=== PATIENT | female | born 1960 | race Caucasian/White ===

== ENCOUNTER 2025-04-24 10:28 | Outpatient (REF) | payer OTHER, SELFPAY ==
[2025-04-24 14:31] LABS: Hematocrit 41.5 % (37.0-47.0); Hemoglobin 14.5 g/dl (12.0-16.0); Mean Corpuscular HGB Conc 34.9 g/dl (31.0-35.0); Mean Corpuscular Hemoglobin 30.7 pg (27.0-33.0); Mean Corpuscular Volume 87.9 fL (80.0-98.0); NRBC Abs Auto 0.000 X10*3/uL (0.0-0.012); NRBC Pct Auto 0.0 /100WBC (0.0-0.2); Platelet Count 284 X10*3/uL (160-400); Red Blood Count 4.72 X10*6/uL (4.20-5.50); White Blood Count 10.6 X10*3/uL (4.8-10.8)
[2025-04-24 15:40] LABS: Folate 2.3 ng/mL (> or = 4.0); Vitamin B12 565 pg/mL (200-900)
[2025-04-24 17:41] LABS: Anion Gap 13 (12-20)
[2025-04-24 19:27] LABS: Alanine Aminotransferase 20 U/L (0-31); Albumin Level 4.5 g/dL (3.5-5.0); Alkaline Phosphatase 74 U/L (39-117); Aspartate Amino Transferase 23 U/L (5-31); Blood Urea Nitrogen 10 mg/dL (9-16); Calcium 9.7 mg/dL (8.4-10.2); Carbon Dioxide 31 mmol/L (22-29); Chloride 98 mmol/L (96-108); Estimated Glomerular Filt Rate > 60; Iron 75 mcg/dL (30-160); Magnesium 1.9 mg/dL (1.6-2.6); Percent Iron Saturation 24 % (15-50); Sodium 139 mmol/L (135-145); Total Iron Binding Capacity 309 mcg/dL (228-428); Total Protein 7.6 g/dL (6.5-8.0); Unsaturated Iron Binding 234 ug/dL
[2025-04-24 19:59] LABS: Potassium 2.7 mmol/L (3.3-5.1)
== END 2025-04-24 10:29 | disposition home or self-care (01) ==
LOC: HO.WFDLDS 10:28
PROVIDERS: PCP Nurse Practitioner Family; Visit Provider Nurse Practitioner Family
DX: I12.9 Hypertensive chronic kidney disease with stage 1 through stage 4 chronic kidney disease, or unspecified chronic kidney disease (principal); E03.9 Hypothyroidism, unspecified; F17.210 Nicotine dependence, cigarettes, uncomplicated; F41.9 Anxiety disorder, unspecified; G47.00 Insomnia, unspecified; R01.1 Cardiac murmur, unspecified; N18.31 Chronic kidney disease, stage 3a; F41.1 Generalized anxiety disorder; F10.21 Alcohol dependence, in remission; F33.0 Major depressive disorder, recurrent, mild; R94.31 Abnormal electrocardiogram [ECG] [EKG]; I34.81 Nonrheumatic mitral (valve) annulus calcification; Z23 Encounter for immunization; Z78.0 Asymptomatic menopausal state; Z13.1 Encounter for screening for diabetes mellitus; Z53.20 Procedure and treatment not carried out because of patient's decision for unspecified reasons; Z92.89 Personal history of other medical treatment; Z76.89 Persons encountering health services in other specified circumstances
CPT/HCPCS: 36415; 80053; 82043; 82306; 82570; 82607; 82746; 83036; 83540; 83735; 84100; 84443; 85027; 90471; 90656; 96127

== ENCOUNTER 2025-04-24 10:28 | Outpatient (AMB) | payer OTHER, SELFPAY ==
--- NOTE | 2025-04-24 10:45 | A.OFFPC_ITS ---
Vital Signs 04/24/25 10:52 04/24/25 11:18 Height 5 ft 3 in Weight 177 lb BMI 31.4 BP 150/80 H 132/68 Blood Pressure Location Rt brachial Rt brachial Position Sitting Sitting Respiration 14 Pulse 93 Pulse Source Pulse Oximeter Temp 97.2 F Temp Source Oral Pulse Oximetry (%) 96 Oxygen Delivery Method Room Air Intake Visit Reasons: [employer] Thyroid conditions Intake Note: New patient to establish care. Labor Expediter Required: No Allergies lisinopril Adverse Reaction (Mild, Verified 04/24/25 11:18) Cough Medication List - Last Reviewed 04/24/25 by Kate Frank MA hydrochlorothiazide 25 mg PO DAILY levothyroxine 150 mcg PO DAILY potassium chloride ER (Klor-Con M) 20 mEq PO DAILY trazodone 50 mg PO BEDTIME Tobacco use date assessed: 04/24/25 Dental Screening Dental Screen Date: 04/24/25 Did you have a dental visit in the last 12 months?: No Did you have a dental problem in the last 6 months where you did not have access to dental care?: No Was dental information given to patient?: Patient declined HPI HPI Comments History of Present Illness Details 64 y/o F with QT prolongation, CKD3, ALMITA , MDD, HTN, Hypothryoid, Etoh dependence in remission, Current smoker, DJD of spine, Mitral valve thickening s/p appy, froylan, tonsillectomy Fhx: Dad prostate ca ; Mom dementia Social: lives w , 3 adult children, has grandchildren; 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 Previous PCP [facility] , records reviewed and rec'd Essential Hypertension/HX QR prolongation - Managed with hydrochlorothiazide post- lisinopril cough. - Past sodium-related issues; low potass ium noted in the past - Reports related to meds she was on; harrison s stopped. Denies palpitations. Hypothyroidism: - On levothyroxine; due for labs. Alcohol Use Disorder: - In remission; occasional drink, no reg ular use. Nicotine Dependence: - Attempts reduction; smoking approx. 10 /day. Anxiety Disorder, Major Depressive Disorder, insomnia: - Managed with trazodone PRN. Offered an d declined counseling; feels she is managing. Heart Murmur: - Noted during exam; mitral valve issue in 2019 noted on echo. - Declined Statin/cholesterol testing, p er choice. Review of Systems - Cardiovascular: Reports white coat syn drome. Denies current chest pain. - Respiratory: Denies recent persistent cough. - Endocrine: Reports current thyroid med ication use. - Musculoskeletal: Reports ankle and leg discomfort. - Psychiatric: Reports anxiety, does not feel need for therapy. - Substance Use: Denies recent regular a lcohol use; smokes ~10 cigarettes daily. Physical Exam General: Well developed, well nourished, in no acute distress. Appears stated age. Head: Normocephalic, atraumatic. Eyes: Pupils are equal, round and reactive to light and accommodation. Conjunctivae are clear Lungs: Clear to auscultation bilaterally. No rales, rhonchi or wheeze noted. Good air flow in all galvan. Heart: Regular rate and rhythm. 2/6 murmur RSB noted Musculoskeletal: Joints are nontender, without swelling, redness, or effusions. Pulses: Peripheral pulses are equal and palpable bilaterally. Extremities: No clubbing, cyanosis nor edema is noted. + varicose veins Psych: Mood and affect appropriate. Results Pending Discussion Notes I discussed the patient's chronic conditions including hypertension, hypothyroidism, past alcohol use disorder, nicotine dependence, anxiety, and depression. We reviewed her blood pressure management with hydrochlorothiazide and past issues with lisinopril. I addressed electrolyte concerns in relation to her hypothyroidism, agreeing on necessary lab checks to evaluate her current baseline levels. The patient is aware of her remission from alcohol use and her attempts to reduce nicotine use, highlighting her ongoing attempts to cut back smoking. I noted her anxiety, depression & insomnia being managed with trazodone and lifestyle adjustments. I discussed the murmur found on physical exam, which may relate to previous mitral valve thickening, and recommended a follow-up echocardiogram. Finally, the patient opted out of cholesterol testing due to past medication issues and expressed concerns over lab costs. I informed her of the test's significance, but respected her decision. Flu vaccination was accepted, considering her familial exposure risks. Patient was given time to ask questions. All questions were answered to their satisfaction. Assessment and Plan 1. Essential Hypertension - Continue hydrochlorothiazide; monitor electrolytes. - Refill to be sent after lab review 2. Hypothyroidism - Continue levothyroxine; assess thyroid labs. 3. Alcohol Use Disorder - Support remission; minimal consumption noted. 4. Nicotine Dependence - Patient actively reducing; no vaping a dvised. - Will need to review lung ca screening during annual visit 5. Anxiety Disorder, Major Depressive Di sorder, Insomnia: - Continue trazodone; non-pharmacologic strategies. Declined counseling. Denies si.hi 6. Heart Murmur/Hx of QT prolongation - Refer for echocardiogram. - Check EKG at next visit. 7. Flu shot admin today Patient Instructions - Take your prescribed medications as di rected. - Labs today - Attend your echocardiogram appointment . - Continue reducing smoking as able. - Report any new or worsening symptoms. - RTO 4-6 weeks for AWV, sooner PRN Consent Patient was informed and verbally consented to the use of an ambient scribe for clinic note documentation during this visit. Total time spent caring for the patient today was 45 minutes. This includes time spent before the visit reviewing the chart, time spent during the visit, and time spent after the visit on documentation, reviewing laboratory results, diagn ostic imaging, medications, performing a medically necessary evaluation, counseling on diagnoses, care coordination, ordering appropriate tests, ordering appropriate medications, review of tests performed by other providers, reporting test results with the patient, communication with other healthcare providers. [facility] Medical History (Updated 04/24/25 @ 11:42 by Aundrea Herbert, [facility]) Allergic High cholesterol HTN (hypertension) Sciatic nerve disease Sinusitis Thyroid disorder Surgical History (Updated 04/24/25 @ 11:01 by Kate Frank MA) History of appendectomy History of tonsillectomy Hx of cholecystectomy Hx of colonoscopy (~2023) Family History (Updated 04/24/25 @ 11:02 by Kate Frank MA) Father HTN (hypertension) High cholesterol Thyroid disorder Social History (Updated 04/24/25 @ 11:01 by Kate Frank MA) Household Members: Spouse Both parents involved: No Caregiver staying overnight: No Housing: House Are you a primary foster care case manager to a significant other at home: No Do you presently have visiting nurse or other home services: No 75 years or older and lives alone: No Alcohol intake: never Patient Tobacco Use Status: Never used Tobacco e-Cigarette/Vaping Use: Never Used Second Hand Smoke Exposure: No Substance Use Type: Marijuana service: No Current occupational status: employed Current occupation: [employer] Current occupational exposures/hazards: No Cognitive needs: No Hearing needs: No Vision needs: Yes (wear glasses) Questionnaire PHQ-9 Over the last 2 weeks, how often have you been bothered by any of the following problems? 1. Little interest or pleasure in doing things: not at all 2. Feeling down, depressed, or hopeless: not at all 3. Trouble falling or staying asleep, or sleeping too much: several days 4. Feeling tired or having little energy: several days 5. Poor appetite or overeating: not at all 6. Feeling bad about yourself - or that you are a failure or have let yourself or your family down: not at all 7. Trouble concentrating on things, such as reading the newspaper or watching television: not at all 8. Moving or speaking so slowly that other people could have noticed. Or the opposite - being so fidgety or restless that you have been moving around a lot more than usual: not at all 9. Thoughts that you would be better off or of hurting yourself in some way: not at all Total score: 2 Depression Screening Interpretation: Negative Depression Screening Done: Yes 80155 - PHQ-9 Billing: Yes Source: Developed by Drs. Antonio Arroyo, Sondra Remy, Jed Nichols and colleagues, with an educational frandy from [employer]. Thrive Questionnaire Date Thrive assessed: 04/24/25 I am a: Patient What is your living situation today?: I have a steady place to live Within the past 12 months, did the food you bought not last and you didn't have the money to get more?: Never true Within the past 12 months, did you worry whether your food would run out before you got money to buy more?: Never true Do you have trouble paying for medicines?: I choose not to answer this question Do you have trouble getting transportation to medical appointments?: No Do you have trouble paying your heating and electricity bill?: I choose not to answer this question Do you have trouble taking care of your child, family member or friend?: No Do you have trouble with day-to-day activities such as bathing, preparing meals, shopping, managing finances, etc.?: No Are you currently unemployed and looking for a job?: No Are you interested in more education?: No Please select the resources that you would like help with: None Currently or been in a relationship where the following occur: No concerns reported THRIVE Score: 0 AUDIT C Alcohol Use Questionnaire (AUDIT-C) 1. How often do you have a drink containing alcohol?: Never 3. How often do you have six or more drinks on one occasion?: Never Total Score: 0 Score Reviewed/Action Taken: Yes ALMITA-7 AMB Questionnaire ALMITA-7 Date ALMITA - 7 assessed: 04/24/25 Feeling nervous, anxious, or on edge: 0 = Not at all Not being able to stop or control worryin = Not at all Worrying too much about different things: 0 = Not at all Trouble relaxin = More than half the days Being so restless that it is hard to sit still: 0 = Not at all Becoming easily annoyed or irritable: 0 = Not at all Feeling afraid as if something awful might happen: 0 = Not at all Total ALMITA-7 score (0-4 normal; 5-9 mild; 10-14 moderate; 15-21 severe): 2 Source: Developed by Drs. Antonio Arroyo, Sondra Remy, Jed Nichols and colleagues, with an educational frandy from [employer]. ALMITA-7 Assessment Billing ALMITA-7 Assessment Tool: ALMITA-7 Assessment 09690 Physical exam (Primary Care) Vital Signs: Last Vital Signs Temp 97.2 F 04/24/25 10:52 Pulse 93 04/24/25 10:52 Resp 14 04/24/25 10:52 BP 132/68 04/24/25 11:18 Pulse Ox 96 04/24/25 10:52 Oxygen Delivery Method Room Air 04/24/25 10:52 BMI result Body Mass Index 31.4 BMI Assessment/Plan discussion: High BMI High, discussed plan: lifestyle Tobacco/Smoking Status: Tobacco use Status Tobacco use date assessed 04/24/25 04/24/25 10:48 Patient Tobacco Use Status Never used Tobacco 04/24/25 11:01 e-Cigarette/Vaping Use Never Used 04/24/25 11:01 Are you ready to quit: Yes Tobacco cessation counseling provided: Yes Items discussed: Nicotine replacement, QuitWorks and Other Relapse Prevention: discussed the importance of a supportive environment, discussed extending NRT, discussed negative mood or depression after quitting, weight gain after smoking is common and discussed dietary, exercise and/or lifestyle changes Number of minutes spent counselin CPT code: 24379 - 4-10 Minutes PHQ-9: PHQ-9 Score PHQ-9: Total score 2 04/24/25 11:19 Depression Screening Interpretation: Negative Thrive Assessment: Date of Thrive Assessment Date Thrive assessed 04/24/25 04/24/25 10:48 Currently or been in a relationship where the following occur: No concerns reported Office Procedures Flu Questionnaire Does the patient have a severe egg allergy?: No Does the patient have severe life threatening allergies?: No Does the patient have a fever or illness today?: No Has the patient ever had Guillain-Cornish Syndrome?: No Has the patient ever had any past reaction to a flu shot?: No Immunizations Fluarix [id number] (PF) 45 mcg (15 mcg x 3)/0.5 mL IM syringe Performing Provider: MARK Conway Performing Location: [facility] Administered by: Kate Frank MA on 04/24/25 11:41 Dose Route Admin Location Dispensed Lot Number Expiration Date [facility] [employer] 0.5 mL IM Left Deltoid 0.5 mL [id number] 01/01/26 [id number] [employer] VIS Given Date VIS Provided VIS Publication Date 04/24/25 Single Vaccine 24 Eligibility Eligibility Date Funding Source Not [facility] Eligible 04/24/25 Private Coding Level of Care Code New Pt Level 4 (28761) Complex EM visit Add On G2211 Diagnoses Encounter to establish care Z76.89 Acquired hypothyroidism E03.9 Hypothyroidism type: acquired Stage 3a chronic kidney disease N18.31 Chronic kidney disease stage 3 subtype: stage 3a (GFR 45-59) ALMITA (generalized anxiety disorder) F41.1 Mild episode of recurrent major depressive disorder F33.0 Major depression episode severity: mild Alcohol dependence in remission F10.21 Substance use status: in remission Tobacco dependence F17.200 QT prolongation R94.31 History of echocardiogram Z92.89 Primary hypertension I10 Hypertension type: primary hypertension Cholesterol reduction program declined Z53.20 Influenza vaccination administered at current visit Z23 Menopause Z78.0 Calcification of mitral valve I34.81 Heart murmur R01.1 Additional Codes ALMITA-7 Assessment Billing - ALMITA-7 Assessment Tool: ALMITA-7 Assessment 49156 ([id number]) PHQ-9 - 30738 - PHQ-9 Billing: Yes ([id number]) Vital Signs *Quality* - CPT code: 68062 - 4-10 Minutes ([id number]) Assessment & Plan Assessment & Plan (1) Encounter to establish care: Code(s): Z76.89 - Persons encountering health services in other specified circumstances (2) Hypothyroid: Code(s): E03.9 - Hypothyroidism, unspecified Category: Medical Qualifiers: Hypothyroidism type: acquired Qualified Code(s): E03.9 - Hypothy roidism, unspecified (3) CKD (chronic kidney disease) stage 3, GFR 30-59 ml/min: Code(s): N18.30 - Chronic kidney disease, stage 3 unspecified Category: Medical Qualifiers: Chronic kidney disease stage 3 subtype: stage 3a (GFR 45-59) Qualified Code(s): N18.31 - Chronic kidney disease, stage 3a (4) ALMITA (generalized anxiety disorder): Code(s): F41.1 - Generalized anxiety disorder Category: Medical (5) MDD (major depressive disorder), recurrent episode: Code(s): F33.9 - Major depressive disorder, recurrent, unspecified Category: Medical Qualifiers: Major depression episode severity: mild Qualified Code(s): F33.0 - Major depressive disorder, recurrent, mild (6) Alcohol dependence: Comment: reports occasional etoh since 2019 Code(s): F10.20 - Alcohol dependence, uncomplicated Category: Medical Qualifiers: Substance use status: in remission Qualified Code(s): F10.21 - Alcohol dependence, in remission (7) Tobacco dependence: Comment: Smoking Cessation How to Quit There are a lot of ways to quit smoking and many resources to help you. Family members, friends, and co-workers may be supportive or encouraging, but to be successful the desire and commitment to quit must be your own. Most people who have been able to successfully quit smoking made at least one unsuccessful attempt in the past. Try not to view past attempts to quit as failures, but rather as learning experiences. Stopping smoking or using smokeless tobacco is difficult, but anyone can do it. Know the symptoms to expect when you stop. Common symptoms include: ? An intense craving for nicotine ? Anxiety, tension, restlessness, frustration, or impatience ? Difficulty concentrating ? Drowsiness or trouble sleeping, as well as bad dreams and nightmares ? Drowsiness and trouble sleeping ? Headaches ? Increased appetite and weight gain ? Irritability or depression How severe your symptoms are depends on how long you smoked and how many cigarettes you smoked each day. Feel ready to quit? ? First and foremost, set a quit date and quit completely on that day. Before your quit date, you may begin reducing your cigarette use. But remember, there is no safe level of cigarette smoking. ? List the reasons why you want to quit. Include both short- and long-term benefits. ? Identify the times you are most likely to smoke. For example, do you tend to smoke when feeling stressed or down? When out at night with friends? While drinking coffee or alcohol? When bored? While driving? Right after a meal or sex? During a work break? While watching TV or playing cards? When you are with other smokers? ? Let all of your friends, family, and co-workers know of your plan to stop smoking and your quit date. Just being aware that they know what you're going through can be helpful, especially when you are grumpy. ? Get rid of all your cigarettes just before the quit date, and clean out anything that smells like smoke, such as clothes and furniture. Make a plan about what you will do instead of smoking at those times when you are most likely to smoke. ? Be as specific as possible. For example, drink tea instead of coffee -- tea may not trigger the desire for a cigarette. Or, take a walk when you feel stressed. ? Remove ashtrays and cigarettes from the car. Place pretzels or hard candies there instead. Pretend-smoke with a straw. ? Find activities that focus your hands and mind but are not taxing or fattening. Computer games, solitaire, knitting, sewing, and crossword puzzles may help. ? If you normally smoke after eating, find other ways to end a meal. Play a tape or CD, eat a piece of fruit, get up and make a phone call, or take a walk (a good distraction that also moreno calories). Make other changes in your lifestyle. ? Change your daily schedule and habits. Eat at different times or eat several small meals instead of three large ones. Sit in a different chair or even a different room. ? Satisfy your oral habits by eating celery or other low-calorie snack, chewing sugarless gum, or sucking on a cinnamon stick. ? Go to public places and restaurants where smoking is prohibited or restricted. ? Eat regular meals and don't eat too much candy or sweet things. ? Get more exercise. Take walks or ride a bike. Exercise helps relieve the urge to smoke. Set short-term quitting goals and reward yourself when you meet them. ? Every day, put the money you normally spend on cigarettes in a jar. Then buy something pleasurable after a period of time. ? Try not to think about all the days ahead you will need to avoid smoking. Take it one day at a time. ? Even one puff or one cigarette will make your desire for more cigarettes even stronger. However, it is normal to make mistakes. So even if you have one cigarette, you don't need to take the next one. Other tips to help you quit smoking and stick to it: ? Enroll in a smoking cessation program (hospitals, health departments, community centers, and work sites often offer programs). Learn about self-hypnosis or other techniques. ? Ask your health care provider about prescription medications that are safe and appropriate for you. ? Find out about nicotine patches, gum, and sprays. The [place] [employer]'s web site -- www.cancer.org -- is an excellent resource for smokers who are trying to quit, and the [place] [employer] can help some smokers kick the habit. Above all, don't get discouraged if you aren't able to quit smoking the first time. Nicotine addiction is a hard habit to break. Try something different next time. Develop new strategies, and try again. Many people take several attempts to finally kick the habit. Code(s): F17.200 - Nicotine dependence, unspecified, uncomplicated Category: Medical (8) QT prolongation: Code(s): R94.31 - Abnormal electrocardiogram [ECG] [EKG] Category: Medical (9) History of echocardiogram: Onset Date: ~2018 Comment: Echo 2019 EF 60-65%, mild MV thickening, IVC dilation, Carotid US 2019 WNL Code(s): Z92.89 - Personal history of other medical treatment Category: Medical (10) HTN (hypertension): Code(s): I10 - Essential (primary) hypertension Category: Medical Qualifiers: Hypertension type: primary hypertension Qualified Code(s): I10 - Essential (primary) hypertension (11) Cholesterol reduction program declined: Code(s): Z53.20 - Procedure and treatment not carried out because of patient's decision for unspecified reasons Category: Medical (12) Influenza vaccination administered at current visit: Onset Date: ~04/24/25 Code(s): Z23 - Encounter for immunization Category: Medical (13) Menopause: Code(s): Z78.0 - Asymptomatic menopausal state Category: Medical (14) Calcification of mitral valve: Code(s): I34.81 - Nonrheumatic mitral (valve) annulus calcification Category: Medical (15) Heart murmur: Code(s): R01.1 - Cardiac murmur, unspecified Category: Medical Plan . Orders: Orders Microalbumin, Random (w Creat) Today E03.9 - Hypothyroidism, unspecified, I10 - Essential (primary) hypertension, N18.30 - Chronic kidney disease, stage 3 unspecified, R94.31 - Abnormal electrocardiogram [ECG] [EKG] Vitamin B12 and Folate Today E03.9 - Hypothyroidism, unspecified, I10 - Essential (primary) hypertension, N18.30 - Chronic kidney disease, stage 3 unspecified, R94.31 - Abnormal electrocardiogram [ECG] [EKG] IRON PROFILE Today E03.9 - Hypothyroidism, unspecified, I10 - Essential (primary) hypertension, N18.30 - Chronic kidney disease, stage 3 unspecified, R94.31 - Abnormal electrocardiogram [ECG] [EKG] Influenza [id number] Immunization Today Z23 - Encounter for immunization Complete Blood Count no Diff Today E03.9 - Hypothyroidism, unspecified, I10 - Essential (primary) hypertension, N18.30 - Chronic kidney disease, stage 3 unspecified, R94.31 - Abnormal electrocardiogram [ECG] [EKG] Comprehensive Met. Panel Today E03.9 - Hypothyroidism, unspecified, I10 - Essential (primary) hypertension, N18.30 - Chronic kidney disease, stage 3 unspecified, R94.31 - Abnormal electrocardiogram [ECG] [EKG] Hemoglobin A1c Today E03.9 - Hypothyroidism, unspecified, I10 - Essential (primary) hypertension, N18.30 - Chronic kidney disease, stage 3 unspecified, R94.31 - Abnormal electrocardiogram [ECG] [EKG] TSH reflex Free T4 Today E03.9 - Hypothyroidism, unspecified, I10 - Essential (primary) hypertension, N18.30 - Chronic kidney disease, stage 3 unspecified, R94.31 - Abnormal electrocardiogram [ECG] [EKG] Vitamin D 25-OH Total Today E03.9 - Hypothyroidism, unspecified, I10 - Essential (primary) hypertension, N18.30 - Chronic kidney disease, stage 3 unspecified, R94.31 - Abnormal electrocardiogram [ECG] [EKG] Magnesium Today R94.31 - Abnormal electrocardiogram [ECG] [EKG] Phosphorus Today R94.31 - Abnormal electrocardiogram [ECG] [EKG] CA echo transthorac w con Today I34.81 - Nonrheumatic mitral (valve) annulus calcification, R01.1 - Cardiac murmur, unspecified Patient Instructions: Walk-In Care (Urgent Care): We Make it Easy Walk-in for urgent medical issues such as: ? Seasonal Allergies ? Insect Bites ? Cough ? Diarrhea ? Acute Asthma Attacks ? Back, Knee or Joint Pain ? Ear Infection ? Fever without a Rash ? Headaches ? Nausea ? [place], Rash or Skin Irritation ? Sore Throat ? Sports Physicals ? Vomiting Most insurances are accepted. Patients do not need to be part of the [facility] to seek care at the walk-in clinic. Locations [address], [place] Open Wednesday through Wednesday 8am-5pm *Hours may vary due to staffing availability. To confirm Walk-In Care hours please call. [address], [place] [address] ? [phone] [facility] in [place] provides services to ages 18 and over. Open Wednesday-Wednesday: 7 a.m. to 5 p.m. and Wednesday: 9 a.m. to 3 p.m.* *Hours may vary due to staffing availability. To confirm Walk-In Care hours in [place], please call [phone]. [address] [place] [address] ? [phone] [facility] in [place] provides services to ages 12 and over. Open Wednesday-Wednesday: 8 a.m. to 5 p.m. Hours may vary due to staffing availability. To confirm Walk-In Care hours in [place], please call [phone]. LABORATORY SERVICES: [facility] Lab ? Primary Location [address] [place] [address] Wednesday through Wednesday 6:00 AM ? 5:00 PM Wednesday 7:00 AM ? 11:00 AM* [phone] The [facility] Lab is centrally located near the front entrance of the [facility] for easy outpatient access. Convenient parking is provided for outpatients. *Hours may vary due to staffing availability. To confirm Laboratory hours for a [place] location, please call [phone]. Offsite Location For your convenience, we offer offsite laboratory draw stations at the following locations: [address] [place] [address] ? [address], [address] [place] [address] Wednesday through Wednesday 7:30 AM ? 1:00 PM* [phone] *Hours may vary due to staffing availability. To confirm Laboratory hours for any location, please call [phone]. [place] ? [address] Wednesday through Wednesday 6:00 AM ? 3:30 PM* Wednesday 6:30 AM ? 3 PM* [phone] *Hours may vary due to staffing availability. To confirm Laboratory hours for any location, please call [phone] [place] [address] Wednesday through Wednesday 7:30 AM ? 4:00 PM* [phone] *Hours may vary due to staffing availability. To confirm Laboratory hours for any location, please call [phone] [place] [address] Wednesday through 9:00 AM ? 4:00 PM* *Hours may vary due to staffing availability. To confirm Laboratory hours for any location, please call [phone]. Appointments are not necessary. Walk-ins are welcome. Like all the departments throughout the [facility], our Lab undergoes frequent reviews to ensure the quality and accuracy of test results, and our staff takes special pride in its status as a nationally accredited facility. Patient Portal: [facility] ONE PATIENT. ONE RECORD. BETTER CARE. [facility] has a fully integrated, cutting- edge mobile electronic health information system that has revolutionized the way we care for our patients and manage our organization. This system improves communication and coordination enabling us to provide safe, higher-quality care, and an overall positive experience for staff and patients. Our first priority, as always, is to deliver the highest quality care possible. The system is running in the background supporting that priority. This portal is for all [facility] and [facility] services and practices. If you are experiencing any technical difficulties with enrolling or logging into the Patient Portal please complete the [facility] Patient Portal Technical Support Form. [facility] now offers a new secure on-line interactive tool for patients to review their health information ? ?Patient Portal. This interactive web portal will enable patients and their families to take an active role in their care by providing easy, secure access to their health information via the internet. The Patient Portal provides patients with instant access to their health information, including laboratory results, medications, allergies, demographic information, visit history, and more. In addition to managing their own care, parents and health care proxies with authorized consent will appreciate the ability to access the records of those individuals for whom they provide care. Please note: if you wish to gain access (Proxy) to another patient?s portal, you will be required to come to the Medical Records Department in person at [facility]. Both the patient giving proxy access and the proxy will need to provide photo identification and complete the appropriate authorization. The Patient Portal also allows track their appointments online. The [facility] Patient Portal also saves patients time by allowing them to submit updates to their demographic and contact information prior to their visits. Portal email notifications will also alert patients to any new activity on their portal, such as test results and new appointments. In order to initially enroll in the [facility] Patient Portal, you will need to enter some required information including the following: * your [facility] Medical Record number * your personal home email address * name * date of Please note: In order to enroll in the [facility] Patient Portal, we need to have your email address on file in your electronic medical record. ?The email address needs to be specific for one person (yourself) in order for your Portal enrollment to be successful. ?You can update your email address in person with our Registration staff when you are registering for a hospital visit. ?Otherwise, you will need to come to the Health Information Management (Medical Records) Department at [facility]. ?We are open from Wednesday ? Wednesday from 7:30 a.m. ? 4:30 p.m. ?You will be required to present a photo id. Once you have successfully enrolled in the Patient Portal, you will receive a one-time user id and password for the Portal, sent to your email address. ?This will allow you to log into the Patient Portal within 99 hrs and reset your own logon id and password, and define personal security questions. ?Once your permanent login and password have been set, you can log into the [facility] Patient Portal at any time via the blue button above or from the Portal Logon button on any page of the [facility] website. [facility] and [facility] encourage all of our patients to enroll in Patient Portal as it presents a valuable opportunity for patients and their families to actively participate in their care and stay healthy Welcome to [facility]. ?We look forward to working with you.
[2025-04-24 10:52] VITALS: BP 150/80; PULSE 93; RESP 14; TEMP 36.2; O2SAT 96; BMI 31.4
[2025-04-24 11:18] VITALS: BP 132/68
--- OUTSIDE RECORDS SUMMARY | 2025-04-24 12:30 | XMS_ITS ---
Author Name [facility] Organization Unknown Care Team Organization Name Specialty Phone Email Start Date End Da sridevi [facility] NULL Primary Care 09/09/2022 02/21/2024 [facility] Michell Santo DO Primary Care 05/12/202202/02
== END 2025-04-24 11:39 | disposition home or self-care (01) ==
LOC: HO.HMCFM 10:30
PROVIDERS: PCP Nurse Practitioner Family; Visit Provider Nurse Practitioner Family
DX: I12.9 Hypertensive chronic kidney disease with stage 1 through stage 4 chronic kidney disease, or unspecified chronic kidney disease (principal); N18.31 Chronic kidney disease, stage 3a; F10.21 Alcohol dependence, in remission; E03.9 Hypothyroidism, unspecified; F41.1 Generalized anxiety disorder; F33.0 Major depressive disorder, recurrent, mild; F17.210 Nicotine dependence, cigarettes, uncomplicated; R94.31 Abnormal electrocardiogram [ECG] [EKG]; Z92.89 Personal history of other medical treatment; Z23 Encounter for immunization; Z78.0 Asymptomatic menopausal state; I34.81 Nonrheumatic mitral (valve) annulus calcification; R01.1 Cardiac murmur, unspecified

== ENCOUNTER 2025-04-27 10:49 | Outpatient (AMB) | payer OTHER, SELFPAY ==
--- NOTE | 2025-04-27 07:47 | MHC.PC.OV ---
Intake Visit Reasons: review labs Allergies lisinopril Adverse Reaction (Mild, Verified 04/27/25 16:32) Cough Medication List - Last Reconciled 04/27/25 by MARK Conway hydrochlorothiazide 25 mg PO DAILY levothyroxine 150 mcg PO DAILY potassium chloride 20 mEq (15 mL) PO DAILY 10 days trazodone 50 mg PO BEDTIME Tobacco use date assessed: 04/24/25 Dental Screening Dental Screen Date: 04/24/25 HPI HPI Comments History of Present Illness Details 64 y/o F with QT prolongation, CKD3, ALMITA, MDD, HTN, Hypothryoid, Etoh dependence in remission, Current smoker, DJD of spine, Mitral valve thickening s/p appy, froylan, tonsillectomy Fhx: Dad prostate ca ; Mom dementia Social: lives w , 3 adult children, has grandchildren; 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 Admits to over all poor diet. Physical Exam Unable to connect via video Results labs 04/24/25 Folate 2.3, phos 2.6, K 2.7 otherwise labs WNL Assessment and Plan STOP HCTZ and KCL Start Valsartan 80 mg QD Start Folic Acid 1 mg QD Repeat labs 1 week before next appt Edu on dietary requirements Refill on levothyroxine sent at same dose Patient was given time to ask questions. All questions were answered to their satisfaction. Telehealth Attestation The patient has been explained that this is an interactive (audio/video) telehealth encounter and what that consists of. The patient understands and wishes to proceed. Mofibo platform was used. Total time spent caring for the patient today was 21 minutes. This includes time spent before the visit reviewing the chart, time spent during the visit, and time spent after the visit on documentation, reviewing laboratory results, diagnostic imaging, medications, performing a medically necessary evaluation, counseling on diagnoses, care coordination, ordering appropriate tests, ordering appropriate medications, review of tests performed by other providers, reporting test results with the patient, communication with other healthcare providers. [facility] Medical History (Updated 04/27/25 @ 07:48 by MARK Conway) Allergic High cholesterol HTN (hypertension) Sciatic nerve disease Sinusitis Thyroid disorder Surgical History (Updated 04/24/25 @ 11:01 by Kate Frank MA) History of appendectomy History of tonsillectomy Hx of cholecystectomy Hx of colonoscopy (~2023) Family History (Updated 04/24/25 @ 11:02 by Kate Frank MA) Father HTN (hypertension) High cholesterol Thyroid disorder Social History (Updated 04/24/25 @ 11:01 by Kate Frank MA) Household Members: Spouse Both parents involved: No Caregiver staying overnight: No Housing: House Are you a primary director critical care to a significant other at home: No Do you presently have visiting nurse or other home services: No 75 years or older and lives alone: No Alcohol intake: never Patient Tobacco Use Status: Never used Tobacco e-Cigarette/Vaping Use: Never Used Second Hand Smoke Exposure: No Substance Use Type: Marijuana service: No Current occupational status: employed Current occupation: [employer] Current occupational exposures/hazards: No Cognitive needs: No Hearing needs: No Vision needs: Yes (wear glasses) Questionnaire Thrive Questionnaire Date Thrive assessed: 04/17/25 I am a: Patient What is your living situation today?: I have a steady place to live Within the past 12 months, did the food you bought not last and you didn't have the money to get more?: Never true Within the past 12 months, did you worry whether your food would run out before you got money to buy more?: Never true Do you have trouble paying for medicines?: I choose not to answer this question Do you have trouble getting transportation to medical appointments?: No Do you have trouble paying your heating and electricity bill?: I choose not to answer this question Do you have trouble taking care of your child, family member or friend?: No Do you have trouble with day-to-day activities such as bathing, preparing meals, shopping, managing finances, etc.?: No Are you currently unemployed and looking for a job?: No Are you interested in more education?: No Please select the resources that you would like help with: None Currently or been in a relationship where the following occur: No concerns reported THRIVE Score: 0 ALMITA-7 AMB Questionnaire ALMITA-7 Date ALMITA - 7 assessed: 04/24/25 Source: Developed by Drs. Antonio LSondra Arizmendi Kurt Kroenke and colleagues, with an educational frandy from [employer]. Physical exam (Primary Care) Tobacco/Smoking Status: Tobacco use Status Tobacco use date assessed 04/24/25 04/27/25 07:48 Patient Tobacco Use Status Never used Tobacco 04/27/25 07:48 e-Cigarette/Vaping Use Never Used 04/27/25 07:48 Thrive Assessment: Date of Thrive Assessment Date Thrive assessed 04/17/25 04/27/25 07:48 Currently or been in a relationship where the following occur: No concerns reported Telehealth Telehealth Telehealth Platform: Mofibo Location of provider rendering services: practice address Location of patient: address on file Patient Identification confirmed using: Name, : Yes Telehealth method: video Patient verbally consented to treatment: Yes Patient verbally consented to billing insurance company: Yes Patient informed of any privacy concerns related to visit: Yes Minutes spent on Phone/Video with Pt.: 14 Coding Level of Care Code Tele Est Pt Level 3 (52973) Complex EM visit Add On G2211 Diagnoses Folate deficiency E53.8 Hypokalemia E87.6 Low phosphate levels E83.39 Primary hypertension I10 Hypertension type: primary hypertension Assessment & Plan Assessment & Plan (1) Folate deficiency: Code(s): E53.8 - Deficiency of other specified B group vitamins Category: Medical (2) Hypokalemia: Code(s): E87.6 - Hypokalemia Category: Medical (3) Low phosphate levels: Code(s): E83.39 - Other disorders of phosphorus metabolism Category: Medical (4) HTN (hypertension): Code(s): I10 - Essential (primary) hypertension Category: Medical Qualifiers: Hypertension type: primary hypertension Qualified Code(s): I10 - Essential (primary) hypertension Plan . Orders: Orders Comprehensive Met. Panel Today E53.8 - Deficiency of other specified B group vitamins, E83.39 - Other disorders of phosphorus metabolism, E87.6 - Hypokalemia, I10 - Essential (primary) hypertension Phosphorus Today E83.39 - Other disorders of phosphorus metabolism Vitamin B12 and Folate Today E53.8 - Deficiency of other specified B group vitamins, E83.39 - Other disorders of phosphorus metabolism, E87.6 - Hypokalemia, I10 - Essential (primary) hypertension Medications: New levothyroxine 150 mcg PO DAILY 90 tabs 2RF folic acid 1 mg PO DAILY 90 tabs 2RF valsartan 80 mg PO DAILY 90 tabs 2RF Refilled levothyroxine 150 mcg PO DAILY 90 tabs 2RF Discontinued potassium chloride Discontinued Reason: Patient Completed Course 20 mEq (15 mL) PO DAILY 10 days 150 mL 0RF hypokalemia
--- OUTSIDE RECORDS SUMMARY | 2025-04-27 12:35 | XMS_ITS | Clinical Summary ---
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 Active levothyroxine (SYNTHROID, LEVOTHROID) 150 mcg tabletIndications :Hypothyroidism, unspecified type Take 1 tablet (150 mcg total) by mouth 1 (one) time each day. 90 tablet 1 06/16/2024 Active traZODone (DESYREL) 50 mg tabletIndications :Primary insomnia Take 1 tablet (50 mg total) by mouth at bedtime. at bedtime. 90 tablet 1 06/16/2024 Active hydroCHLOROthiazi de (HYDRODIURIL) 25 mg tabletIndications :Primary hypertension Take 1 tablet (25 mg total) by mouth 1 (one) time each day. 90 tablet 1 06/16/2024 Active Active Problems Problem Noted Date Diagnosed Date Positive colorectal cancer screening using Colog uard test 06/16/2024 Tobacco use disorder 05/16/2021 Localized swelling of chest wall 09/03/2020 Hyperlipidemia 12/12/2018 Overview (04/05/2024): On lipitor in past, had side effects, not interested in further tx Hypertension 12/12/2018 Hypothyroidism 12/12/2018 Insomnia 12/12/2018 Stress 12/12/2018 Immunizations Immunization Administration Dates Next Due Influenza Quadravalent, MDCK , 0.5ml, preservative free (Flucelvax) 6mo and older 03/14/2019 Influenza trivalent, MDCK, 0 .5mL, preservative free (Flucelvax) 6mo and older 06/16/2024 Influenza trivalent, with pr eservative (Fluzone; Afluria) 6mo and older 05/18/2020 Influenza, Unspecified 05/08/2022 Pfizer (ages 12 & older) Bivalent, COVID-19 11/10/2021 Pfizer SARS-CoV-2 COVID-19, mRNA, LNP-S, preservative free 04/30/2021 Tdap Tetanus diptheria acell ular pertussis (Boostrix; Adacel) 7yo and older 03/14/2019 Surgical History Surgery Date Site/Laterality Comments APPENDECTOMY PROCEDURE: HISTORICAL APPENDECTOMY; COMMENT: in her 20s, had appendicitis CHOLECYSTECTOMY PROCEDURE: HISTORICAL CHOLECYSTECTOMY; COMMENT: in her 30s TONSILLECTOMY PROCEDURE: HISTORICAL TONSILLECTOMY Family History Medical History Relation Name Comments Thyroid disease Brother 1 Other: ?pre-DM Brother 2 Other: thyroid cancer Daughter Thyroid disease Father HLD, dementi a Dementia Mother Other: ?thyroid issues Son Relation Name Status Comments Brother 1 Alive Brother 2 Alive Daughter Father Mother Son Social History Tobacco Use Types Packs/Day Years Used Date Smoking Tobacco: Every Day Cigarettes Smokeless Tobacco: Never Tobacco Cessation:Ready to Q uit: Not Asked; Counseling Given: Not Answered Alcohol Use Standard Drinks/Week Comments Yes 0 (1 standard drink = 0.6 oz pur e alcohol) Comments Unknown Sex and Gender Information Value Date Recorded Sex Assigned at Not on file Legal Sex Female 8:40 PM EST Gender Identity Not on file Sexual Orientation Not on file Obstetrics History Last Filed Vital Signs Vital Sign Reading Time Taken Comments Blood Pressure 130/82 06/16/2024 11:42 AM EST Pulse 80 06/16/2024 11:13 AM EST Temperature 36.5 C (97.7 F) 06/16/2024 11:13 AM EST Respiratory Rate - - Oxygen Saturation - - Inhaled Oxygen Concentration - - Weight 80.1 kg (176 lb 9.6 oz) 06/16/2024 11:13 AM EST Height 160 cm (5' 3 ) 06/16/2024 11:13 AM EST Body Mass Index 31.28 06/16/2024 11:13 AM EST Plan of Treatment Health Maintenance Due Date Last Done Comments Breast Cancer Screening 1960 Cervical Cancer Screening: Pap Smear 10/29/1983 Colorectal Cancer Screening: Stool Based Tests (FOBT/FIT) 08/05/2019 HIV Screening 08/05/2019 Social Influencers of Health Screening 08/05/2019 Pneumococcal Vaccine: 50+ Years (2 of 2 - PPSV23, PCV20, or PCV21) 07/13/2020 05/18/2020 Depression Screening 07/05/2024 06/16/2024 COVID-19 Vaccine ( season) 2025 05/08/2022, 04/30/2021, 04/30/2021, Additional history exists Influenza Vaccine (#1) 2025 , 05/08/2022, 05/18/2020, Additional history exists Hypertension/CHF/CAD Annual BMP Blood Test 06/16/2025 06/16/2024, 11/12/2023, 11/12/2023 Cholesterol Screening (Lipid Panel) 11/21/2027 11/20/2022 DTaP,Tdap,and Td Vaccines (2 - Td or Tdap) 03/14/2029 03/14/2019 RSV Immunization Adult Patients (1 - 1-dose 75+ series) 2037 Zoster Vaccines Completed 09/19/2018, 06/30/2018 Hepatitis C Screening Completed 09/03/2020 Colorectal Cancer Screening: FIT-DNA (Cologuard) Discontinued 12/01/2023 HIB Vaccines Aged Out No longer eligi ble based on patient's age to complete this topic HPV Vaccines Aged Out No longer eligi ble based on patient's age to complete this topic Hepatitis A Vaccines Aged Out No long er eligible based on patient's age to complete this topic Hepatitis B Vaccines Aged Out No long er eligible based on patient's age to complete this topic IPV Vaccines Aged Out No longer eligi ble based on patient's age to complete this topic MMR Vaccines Aged Out No longer eligi ble based on patient's age to complete this topic Meningococcal ACWY Vaccine Aged Out N o longer eligible based on patient's age to complete this topic Meningococcal B Vaccine Aged Out No l onger eligible based on patient's age to complete this topic RSV Immunization Patients Under 20 months Aged Out No longer eligible based on patient's age to complete this topic Varicella Vaccines Aged Out No longer eligible based on patient's age to complete this topic Procedures Procedure Name Priority Date/Time Associated Diagnosis Comments BASIC METABOLIC PANEL Routine 06/16/2024 12:04 PM EST Primary hypertension LIPID PANEL Routine 11/20/2022 HEPATITIS C SCREENING Routine 09/03/2020 from Last 3 Months or Most Recently Relevant to Health Maintenance Results * (ABNORMAL) Basic metabolic panel (06/16/2024 12:04 PM EST) Sodium 138 133 - 145 mmol/L LAB CHEMISTRY METHOD 06/16/2024 3:34 PM [facility] Potassium 3.3(L) 3.5 - 5.5 mmol/L LAB CHEMISTRY METHOD 06/16/2024 3:34 PM [facility] Chloride 99 96 - 110 mmol/L LAB CHEMISTRY METHOD 06/16/2024 3:34 PM [facility] CO2 29 21 - 32 mmol/L LAB CHEMISTRY METHOD 06/16/2024 3:34 PM [facility] Anion Gap 10 3 - 11 LAB CHEMISTRY METHOD 06/16/2024 3:34 PM [facility] Glucose 108(H) 70 - 100 mg/dL LAB CHEMISTRY METHOD 06/16/2024 3:34 PM [facility] BUN 12 5 - 25 mg/dL LAB CHEMISTRY METHOD 06/16/2024 3:34 PM [facility] Creatinine 0.90 0.50 - 1.10 mg/dL LAB CHEMISTRY METHOD 06/16/2024 3:34 PM [facility] eGFR 73 >=60 mL/min/1. 73m2 LAB CHEMISTRY METHOD 06/16/2024 3:34 PM EST [facility] Comment:Calculation based on the Chronic Kidney Disease Epidemiology Collaboration (CKD-EPI) equation refit without adjustment for race. BUN/Creatinine Ratio 13.3 LAB CHEMISTRY METHOD 06/16/2024 3:34 PM EST [facility] Calcium 9.8 8.5 - 10.5 mg/dL LAB CHEMISTRY METHOD 06/16/2024 3:34 PM EST [facility] Blood Venous blood specimen / Unknown Venipuncture / Unknown 06/16/2024 12:04 PM EST 06/16/2024 12:04 PM EST [facility] BLOOD ORDERABLES Final Result [facility] [address] [place] [address], * (ABNORMAL) Lipid panel (11/20/2022) LDL/HDL Ratio 7(A) 0 - 4 Triglycerides 590(A) 0 - 150 mg/dL Cholesterol 369(A) 0 - 200 mg/dL HDL 51 >=40 mg/dL Blood Venous blood specimen / Unknown Historical Provider LAB BLOOD ORDERABLES Jocelyn l Result * Hepatitis C Screening (09/03/2020) Pathologist [facility] Hepatitis C Screening Abstracted Historical Provider HEALTH MAINTENANCE Final Result from Last 3 Months or Most Recently Relevant to Health Maintenance Insurance [facility] Care Teams 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
== END 2025-04-27 16:44 | disposition home or self-care (01) ==
LOC: HO.HMCFM 10:49
PROVIDERS: PCP Nurse Practitioner Family; Visit Provider Nurse Practitioner Family
DX: E53.8 Deficiency of other specified B group vitamins (principal); E87.6 Hypokalemia; E83.39 Other disorders of phosphorus metabolism; I10 Essential (primary) hypertension

== ENCOUNTER 2025-06-13 12:51 | Outpatient (REF) | payer OTHER, SELFPAY ==
[2025-06-13 18:57] LABS: Alanine Aminotransferase 26 U/L (0-31); Albumin Level 4.5 g/dL (3.5-5.0); Alkaline Phosphatase 73 U/L (39-117); Anion Gap 13 (12-20); Aspartate Amino Transferase 25 U/L (5-31); Blood Urea Nitrogen 10 mg/dL (9-16); Calcium 9.7 mg/dL (8.4-10.2); Carbon Dioxide 27 mmol/L (22-29); Chloride 103 mmol/L (96-108); Estimated Glomerular Filt Rate > 60; Potassium 4.0 mmol/L (3.3-5.1); Sodium 139 mmol/L (135-145); Total Protein 7.7 g/dL (6.5-8.0)
== END 2025-06-13 12:52 | disposition home or self-care (01) ==
LOC: HO.WFDLDS 12:51
PROVIDERS: PCP Nurse Practitioner Family; Visit Provider Nurse Practitioner Family
DX: I10 Essential (primary) hypertension (principal); E53.8 Deficiency of other specified B group vitamins; E83.39 Other disorders of phosphorus metabolism; E87.6 Hypokalemia; Z13.31 Encounter for screening for depression; Z13.39 Encounter for screening examination for other mental health and behavioral disorders
CPT/HCPCS: 36415; 80053; 84100; 93005; 96127

== ENCOUNTER 2025-06-13 12:51 | Outpatient (AMB) | payer OTHER, SELFPAY ==
--- NOTE | 2025-06-13 12:57 | AM.OFFVISMDC ---
Intake Vital Signs 06/13/25 13:05 Height 5 ft 3 in Weight 176 lb 8 oz BMI 31.3 BP 132/72 Blood Pressure Location Rt brachial Position Sitting Respiration 12 Pulse 88 Pulse Source Pulse Oximeter Temp 97.3 F Temp Source Oral Pulse Oximetry (%) 98 Oxygen Delivery Method Room Air Intake Visit Reasons: 4-6 weeks SAWV 30 min Intake Note: AWV. Patient c/o left foot has been bothering x 3 to 4 weeks on and off. 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 Admits to over all poor diet. Physical Exam Unable to connect via video Results labs 04/24/25 Folate 2.3, phos 2.6, K 2.7 otherwise labs WNL Assessment and Plan STOP HCTZ and KCL Start Valsartan 80 mg QD Start Folic Acid 1 mg QD Repeat labs 1 week before next appt Edu on dietary requirements Refill on levothyroxine sent at same dose Patient was given time to ask questions. All questions were answered to their satisfaction. Telehealth Attestation The patient has been explained that this is an interactive (audio/video) telehealth encounter and what that consists of. The patient understands and wishes to proceed. enosiX platform was used. Total time spent caring for the patient today was 21 minutes. This includes time spent before the visit reviewing the chart, time spent during the visit, and time spent after the visit on documentation, reviewing laboratory results, diagnostic imaging, medications, performing a medically necessary evaluation, counseling on diagnoses, care coordination, ordering appropriate tests, ordering appropriate medications, review of tests performed by other providers, reporting test results with the patient, communication with other healthcare providers. [facility] Medical History (Updated 04/27/25 @ 07:48 by Aundrea Herbert [facility]) Sciatic nerve disease Thyroid disorder High cholesterol HTN (hypertension) Allergic Sinusitis Surgical History (Updated 04/24/25 @ 11:01 by Kate Frank MA) Hx of colonoscopy (~2023) History of appendectomy Hx of cholecystectomy History of tonsillectomy Family History (Updated 04/24/25 @ 11:02 by Kate Frank MA) Father HTN (hypertension) High cholesterol Thyroid disorder Social History (Updated 04/24/25 @ 11:01 by Kate Frank MA) Household Members: Spouse Both parents involved: No Caregiver staying overnight: No Housing: House Are you a primary direct care worker to a significant other at home: No Do you presently have visiting nurse or other home services: No 75 years or older and lives alone: No Alcohol intake: never Patient Tobacco Use Status: Never used Tobacco e-Cigarette/Vaping Use: Never Used Second Hand Smoke Exposure: No Substance Use Type: Marijuana service: No Current occupational status: employed Current occupation: [employer] Current occupational exposures/hazards: No Cognitive needs: No Hearing needs: No Vision needs: Yes (wear glasses) Questionnaire PHQ-9 Over the last 2 weeks, how often have you been bothered by any of the following problems? 1. Little interest or pleasure in doing things: not at all 2. Feeling down, depressed, or hopeless: not at all 3. Trouble falling or staying asleep, or sleeping too much: not at all 4. Feeling tired or having little energy: not at all 5. Poor appetite or overeating: not at all 6. Feeling bad about yourself - or that you are a failure or have let yourself or your family down: not at all 7. Trouble concentrating on things, such as reading the newspaper or watching television: not at all 8. Moving or speaking so slowly that other people could have noticed. Or the opposite - being so fidgety or restless that you have been moving around a lot more than usual: not at all 9. Thoughts that you would be better off or of hurting yourself in some way: not at all Total score: 0 Depression Screening Interpretation: Negative Depression Screening Done: Yes 59505 - PHQ-9 Billing: Yes Source: Developed by Drs. Antonio Arroyo, Sondra Remy, Jed Nichols and colleagues, with an educational frandy from [employer]. Physical Exam Vital Signs: Last Vital Signs Temp 97.3 F 06/13/25 13:05 Pulse 88 06/13/25 13:05 Resp 12 06/13/25 13:05 BP 132/72 06/13/25 13:05 Pulse Ox 98 06/13/25 13:05 Oxygen Delivery Method Room Air 06/13/25 13:05 BMI result Body Mass Index 31.3 Office Procedures EKG 00608-[id number], Complete Vision Screening Right Eye: 20/40 Left Eye: 20/25 Bilateral: 20/25 Color: Pass Corrected: Pass (wearing glasses) 58920 - Vision Screening Quality Reporting (2019) Fall Risk Screening ([facility] 139) Last assessed Fall Risk: 06/13/25 Fall risk assessment: No Falls in past year Depression/Bipolar (159/160/161/177) PHQ-9: Total score: 0 Coding CPT Codes EKG - CPT: 24878-[id number], Complete ([id number]) Vision Screening - Vision Screenin - Vision Screening ([id number]) Additional Codes PHQ-9 - 88511 - PHQ-9 Billing: Yes ([id number])
[2025-06-13 13:05] VITALS: BP 132/72; PULSE 88; RESP 12; TEMP 36.3; O2SAT 98; BMI 31.3
--- NOTE | 2025-06-13 13:49 | MHC.PC.OV ---
Vital Signs 06/13/25 13:05 Height 5 ft 3 in Weight 176 lb 8 oz BMI 31.3 BP 132/72 Blood Pressure Location Rt brachial Position Sitting Respiration 12 Pulse 88 Pulse Source Pulse Oximeter Temp 97.3 F Temp Source Oral Pulse Oximetry (%) 98 Oxygen Delivery Method Room Air Intake Visit Reasons: CPE Intake Note: CPE Counselor Dormitory Required: No Allergies lisinopril Adverse Reaction (Mild, Verified 06/13/25 14:05) Cough Medication List - Last Reconciled 06/13/25 by Aundrea Herbert, PALLIATIVE CARE NURSE PRACTITIONER- folic acid 1 mg PO DAILY levothyroxine 150 mcg PO DAILY trazodone 50 mg PO BEDTIME valsartan 80 mg PO DAILY Tobacco use date assessed: 06/13/25 Dental Screening Dental Screen Date: 06/13/25 Did you have a dental visit in the last 12 months?: Yes Did you have a dental problem in the last 6 months where you did not have access to dental care?: No Was dental information given to patient?: Patient has dentist HPI HPI Comments History of Present Illness Details 64 y/o F with QT prolongation, CKD3, ALMITA, MDD, HTN, Hypothryoid, Etoh dependence in remission, Current smoker, DJD of spine, Mitral valve thickening, Fhx of stroke, cologaurd +, hemorrhoids s/p appy, froylan, tonsillectomy Fhx: Dad ? 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 Current smoker 1/2 x 40 years Health Maintenance: tdap 2019 Flu 04/24/25 Echo 2019 EF 60-65%, mild MV thickening, IVC dilation, Carotid US 2018 WNL Lung ca screening declined 06/13/25 Colon cologaurd 2023 +, declined colon or repeat, willing to do OBSx 3 Mammo declined 06.13.25 Pap declined 06/13/25 DEXA declined this year 06/13/25 Specialists: Optho, wears glasses last exam December 2024, annual visits Chiro History of Present Illness The patient is a 64 year old female presenting with a complete physical exam. Hypertension: - At the last visit, hydrochlorothiazide was discontinued due to hypokalemia, and valsartan was started. - The patient reports she is doing fine on valsartan. - Blood pressure today was 132/72 mmHg. Hypokalemia: - The patient developed hypokalemia while taking hydrochlorothiazide at the last visit. - She remains concerned that her potassium is low. - An EKG performed today was normal and reassuring, showing no signs of significant electrolyte abnormalities. - Hx of QT prolongation, normal on EKG today Folate Deficiency: - The patient was found to have low folate on labs at her last visit and was prescribed folic acid but didnt start Degenerative Disc Disease and Sciatica: - The patient has a history of degenerative disc disease for years. - She reports a recent onset of a dull ache in her right foot, which started in the heel and under the foot, similar to plantar fasciitis, but has now moved to the top of the foot and sometimes her toes. - She associates this with her sciatica and poor posture, noting that symptoms can appear the day after slumping or pinching the nerve. - She denies any new injury to her back or foot. - She sometimes sees a chiropractor for her symptoms, which can manifest in her thighs or legs down to her toes. Tobacco Use: - The patient is a current, light smoker. - She has been smoking since her 20s, for about 40 years. - At her peak, she smoked about a half pack per day and has averaged about 5-10 cigarettes per day for the last 5-10 years. - She does not smoke in the house and smokes less when she is feeling sick. Preventative Health Maintenance: - Colon Cancer Screening: She did a Cologuard test about a year ago which was positive; however, she believes it was a false positive as she was ill at the time with a suspected food allergy and possible irritation from hemorrhoids. - She declines colonoscopy due to its invasive nature. - Breast Cancer Screening: She has had one mammogram in her lifetime and declines further screening. - Osteoporosis Screening: She has never had a bone density scan and declines screening this year. - Lung Cancer Screening: The option of a low-dose CT scan for lung cancer screening was discussed, but she is not interested at this time. - Eye Exam: Her last eye exam was in December 2019, and she goes annually. - She was told she has the very beginning of cataracts, which is normal for her age. - Skin Cancer Screening: She had a full body mole check with a building stonecutter 5-7 years ago, where some actinic keratosis was noted on her face. Past Medical History - Hypokalemia secondary to hydrochlorothiazide - Folate deficiency - Hypothyroidism - Degenerative disc disease - Sciatica - Hemorrhoids - Onychomycosis - History of severe sunburn - Actinic keratosis - Food allergy, possibly to wheat Family History - Father: Had prostate problems, . Also had hypothyroidism. - Mother: Had dementia, . - Brother: Had hypothyroidism. at age 74 from a bowel obstruction. - Daughter: Has a history of thyroid cancer. - Grandparents: Both grandmothers had strokes and likely passed from complications. - Grandfather: of cancer, was a heavy smoker. - The patient notes that there is no family history of colon cancer. - The patient denies a family history of heart attacks. Social History - Tobacco Use: Current smoker, smoking 5-10 cigarettes per day. She has a 40-year smoking history. - The patient is the youngest of her siblings. Review of Systems - Constitutional: Denies feeling ill. - Musculoskeletal: Reports intermittent dull pain on the top of her right foot, sometimes involving her toes, which she relates to her chronic sciatica. - Gastrointestinal: Reports normal bowel movements. Denies bleeding, but has a history of hemorrhoids. - Genitourinary: Reports normal urination. She notes a transient increase in urination after stopping a diuretic, which has since resolved. - Skin: Reports a history of onychomycosis that is improving with treatment and a history of actinic keratosis. - Allergic/Immunologic: Reports a suspected food allergy to wheat, causing illness. Physical Exam General: Well developed, well nourished, in no acute distress. Appears stated age. Head: Normocephalic, atraumatic. Eyes: Pupils are equal, round and reactive to light and accommodation. Conjunctivae are clear. Scleras nonicteric bilat. Vision grossly normal. Ears: TMs clear AU, EACS WNL Nose: Patent, without discharge. Neck: No carotid bruit bilat. Supple, no adenopathy or thyromegaly. Breast: Edu on SBE Lungs: Clear to auscultation bilaterally. No rales, rhonchi or wheeze noted. Good air flow in all galvan. Heart: Regular rate and rhythm. 2/6 RSB murmur, No click, rubs or gallops are noted. Abdomen: Bowel sounds present in all quadrants. The abdomen is soft, nontender, with no masses or organomegaly noted. No hernias are noted. : Deferred. Reviewed recommendations for routine [employer] Pulses: Peripheral pulses are equal and palpable bilaterally. Extremities: No clubbing, cyanosis nor edema is noted. Reports history of toe fungus, currently being treated. Neurologic: Gait and station normal. Cranial Nerves 2-12 intact. Motor strength grossly symmetrical and intact. No sensory loss. Balance normal. Skin: No rashes, ulcers, or lesions noted. Turgor is good. Skin color is good. Hair and nails are without abnormalities. Reports history of sunburn and mole checks. Psych: Normal eye contact, affect and mood appropriate, and normal interactions. Patient is alert and appropriate to context. Results - EKG: Normal, with no evidence of electrolyte abnormalities. Labs to be done today Medical Decision Making The patient is a 64-year-old female here for a complete physical exam and management of chronic conditions. Her hypertension appears well-controlled on valsartan, with a blood pressure of 132/72 mmHg. The concern for ongoing hypokalemia will be evaluated with labs today; her normal EKG is reassuring that any imbalance is not currently at a critical level. Her right foot pain seems consistent with radiculopathy from her known degenerative disc disease and sciatica, especially given the negative straight leg raise test today. Continued management with her chiropractor is appropriate. For health maintenance, we discussed several screenings. She has declined mammography, osteoporosis screening, and lung cancer screening at this visit. Regarding colon cancer screening, she had a positive Cologuard test about a year ago which she attributes to being ill, and she declines an invasive colonoscopy. She has agreed to an alternative, non-invasive screening with a fecal immunochemical test (stool cards), which will be provided today. Medication refills for levothyroxine and trazodone will be sent to her preferred mail-order pharmacy, [facility]. We will also send a prescription for folic acid to see if her insurance will cover it. Follow-up is recommended in 4-6 months to monitor her thyroid, electrolytes, and blood pressure. Plan Health Maintenance - The patient was provided with a kit for a fecal immunochemical test (stool cards) for colon cancer screening, to be completed at her convenience. - Patient declined mammogram for breast cancer screening, bone density scan for osteoporosis screening, and lung cancer screening. - Pending echocardiogram to be scheduled by the patient. - Schedule follow-up appointment in 4-6 months with labs to be drawn before the visit. 1. Hypertension - Continue valsartan as prescribed. Blood pressure is well-controlled at 132/72 mmHg. 2. Hypokalemia - Check potassium level with today's lab work to evaluate current status. EKG was reassuringly normal. 3. Folate Deficiency - A prescription for folic acid will be sent to the pharmacy; if not covered, the patient may purchase it [id number]. 4. Degenerative Disc Disease With Sciatica - The patient's symptoms of right foot pain are likely related to her known sciatica. She will continue with self-care and chiropractic visits as needed. 5. Hypothyroidism - A new prescription for levothyroxine will be sent to the updated mail-order pharmacy, [facility]. - Labs to check thyroid function will be done today. 6. Tobacco Use Disorder - Discussed lung cancer screening with a low-dose CT scan, which the patient declined at this time. Patient Instructions - Please go to the lab today to have your blood drawn to check your potassium, thyroid, and other levels. - You will receive a stool testing kit from the lab today. Please complete this at home when you are feeling well and return it as instructed. - Your prescriptions for levothyroxine, trazodone, and folic acid have been sent to your mail-order pharmacy, [facility]. - Please call to schedule your echocardiogram. - Continue to monitor your foot pain and follow up with your chiropractor as needed. - Please schedule a follow-up appointment in 4 to 6 months. Consent Patient was informed and verbally consented to the use of an ambient scribe for clinic note documentation during this visit. An additional 20 minutes was spent addressing the problem(s) noted at todays visit. This includes time spent before the visit reviewing the chart, time spent during the visit, and time spent after the visit on documentation reviewing laboratory results, diagnostic imaging, medications, performing a medically necessary evaluation, counseling on diagnoses, care coordination, ordering appropriate tests, ordering appropriate medications, review of tests performed by other providers, reporting test results with the patient, communication with other healthcare providers. [facility] Medical History (Updated 06/13/25 @ 15:05 by Aundrea Herbert [facility]) Allergic High cholesterol HTN (hypertension) Sciatic nerve disease Sinusitis Thyroid disorder Surgical History (Updated 04/24/25 @ 11:01 by Kate Frank MA) History of appendectomy History of tonsillectomy Hx of cholecystectomy Hx of colonoscopy (~2023) Family History (Updated 04/24/25 @ 11:02 by Kate Frank MA) Father HTN (hypertension) High cholesterol Thyroid disorder Social History (Updated 04/24/25 @ 11:01 by Kate Frank MA) Household Members: Spouse Both parents involved: No Caregiver staying overnight: No Housing: House Are you a primary healthcare administrator to a significant other at home: No Do you presently have visiting nurse or other home services: No 75 years or older and lives alone: No Alcohol intake: never Patient Tobacco Use Status: Never used Tobacco e-Cigarette/Vaping Use: Never Used Second Hand Smoke Exposure: No Substance Use Type: Marijuana service: No Current occupational status: employed Current occupation: [employer] Current occupational exposures/hazards: No Cognitive needs: No Hearing needs: No Vision needs: Yes (wear glasses) Questionnaire PHQ-9 Over the last 2 weeks, how often have you been bothered by any of the following problems? 1. Little interest or pleasure in doing things: not at all 2. Feeling down, depressed, or hopeless: not at all 3. Trouble falling or staying asleep, or sleeping too much: not at all 4. Feeling tired or having little energy: not at all 5. Poor appetite or overeating: not at all 6. Feeling bad about yourself - or that you are a failure or have let yourself or your family down: not at all 7. Trouble concentrating on things, such as reading the newspaper or watching television: not at all 8. Moving or speaking so slowly that other people could have noticed. Or the opposite - being so fidgety or restless that you have been moving around a lot more than usual: not at all 9. Thoughts that you would be better off or of hurting yourself in some way: not at all Total score: 0 Depression Screening Interpretation: Negative Depression Screening Done: Yes 63847 - PHQ-9 Billing: Yes Source: Developed by Drs. Antonio Arroyo, Sondra Remy, Jed Nichols and colleagues, with an educational frandy from [employer]. Thrive Questionnaire Date Thrive assessed: 06/13/25 I am a: Patient What is your living situation today?: I have a steady place to live Within the past 12 months, did the food you bought not last and you didn't have the money to get more?: Never true Within the past 12 months, did you worry whether your food would run out before you got money to buy more?: Never true Do you have trouble paying for medicines?: No Do you have trouble getting transportation to medical appointments?: No Do you have trouble paying your heating and electricity bill?: No Do you have trouble taking care of your child, family member or friend?: No Do you have trouble with day-to-day activities such as bathing, preparing meals, shopping, managing finances, etc.?: No Are you currently unemployed and looking for a job?: No Are you interested in more education?: No Please select the resources that you would like help with: None Currently or been in a relationship where the following occur: No concerns reported THRIVE Score: 0 AUDIT C Alcohol Use Questionnaire (AUDIT-C) 1. How often do you have a drink containing alcohol?: Monthly or less 2. How many drinks containing alcohol do you have on a typical day when you are drinking?: 1 or 2 3. How often do you have six or more drinks on one occasion?: Never Total Score: 1 Score Reviewed/Action Taken: Yes ALMITA-7 AMB Questionnaire ALMITA-7 Date ALMITA - 7 assessed: 06/13/25 Feeling nervous, anxious, or on edge: 0 = Not at all Not being able to stop or control worryin = Not at all Worrying too much about different things: 0 = Not at all Trouble relaxin = Not at all Being so restless that it is hard to sit still: 0 = Not at all Becoming easily annoyed or irritable: 0 = Not at all Feeling afraid as if something awful might happen: 0 = Not at all Total ALMITA-7 score (0-4 normal; 5-9 mild; 10-14 moderate; 15-21 severe): 0 Source: Developed by Drs. Antonio Arroyo, Sondra Remy, Jed Nichols and colleagues, with an educational frandy from [employer]. ALMITA-7 Assessment Billing ALMITA-7 Assessment Tool: ALMITA-7 Assessment 33060 Physical exam (Primary Care) Vital Signs: Last Vital Signs Temp 97.3 F 06/13/25 13:05 Pulse 88 06/13/25 13:05 Resp 12 06/13/25 13:05 BP 132/72 06/13/25 13:05 Pulse Ox 98 06/13/25 13:05 Oxygen Delivery Method Room Air 06/13/25 13:05 BMI result Body Mass Index 31.3 Tobacco/Smoking Status: Tobacco use Status Tobacco use date assessed 06/13/25 06/13/25 13:50 Patient Tobacco Use Status Never used Tobacco 06/13/25 13:50 e-Cigarette/Vaping Use Never Used 06/13/25 13:50 PHQ-9: PHQ-9 Score PHQ-9: Total score 0 06/13/25 14:05 Depression Screening Interpretation: Negative Thrive Assessment: Date of Thrive Assessment Date Thrive assessed 06/13/25 06/13/25 13:50 Currently or been in a relationship where the following occur: No concerns reported Office Procedures EKG 50817-Tbfiyvmriuqgjqrwn, Complete Vision Screening Right Eye: 20/40 Left Eye: 20/25 Bilateral: 20/25 Color: Pass Corrected: Pass (wearing glasses) 27447 - Vision Screening Results Reviewed Results Reviewed: labs 04/24/25 Folate 2.3, phos 2.6, K 2.7 otherwise labs WNL Coding Level of Care Code Est Pt Level 3 (99498) Est Pt Prev Care 40-64y(66050) Diagnoses Adult general medical exam Z00.00 Tobacco dependence F17.200 Lung cancer screening declined by patient Z53.20 Cholesterol reduction program declined Z53.20 Positive colorectal cancer screening using Cologuard test R19.5 Mammogram declined Z53.20 Papanicolaou smear declined Z53.20 Dual energy x-ray photon absorptiometry (DEXA) scan declined Z53.20 Acquired hypothyroidism E03.9 Hypothyroidism type: acquired Stage 3a chronic kidney disease N18.31 Chronic kidney disease stage 3 subtype: stage 3a (GFR 45-59) Folate deficiency E53.8 Primary hypertension I10 Hypertension type: primary hypertension CPT Codes EKG - CPT: 20020-Mtpgdcpeiifxaloao, Complete ([id number]) Vision Screening - Vision Screenin - Vision Screening ([id number]) Additional Codes ALMITA-7 Assessment Billing - ALMITA-7 Assessment Tool: ALMITA-7 Assessment 49485 ([id number]) PHQ-9 - 12617 - PHQ-9 Billing: Yes ([id number]) Assessment & Plan Assessment & Plan (1) Adult general medical exam: Onset Date: ~06/13/25 Code(s): Z00.00 - Encounter for general adult medical examination without abnormal findings Category: Medical (2) Tobacco dependence: Comment: Smoking Cessation How to Quit There are a lot of ways to quit smoking and many resources to help you. Family members, friends, and co-workers may be supportive or encouraging, but to be successful the desire and commitment to quit must be your own. Most people who have been able to successfully quit smoking made at least one unsuccessful attempt in the past. Try not to view past attempts to quit as failures, but rather as learning experiences. Stopping smoking or using smokeless tobacco is difficult, but anyone can do it. Know the symptoms to expect when you stop. Common symptoms include: ? An intense craving for nicotine ? Anxiety, tension, restlessness, frustration, or impatience ? Difficulty concentrating ? Drowsiness or trouble sleeping, as well as bad dreams and nightmares ? Drowsiness and trouble sleeping ? Headaches ? Increased appetite and weight gain ? Irritability or depression How severe your symptoms are depends on how long you smoked and how many cigarettes you smoked each day. Feel ready to quit? ? First and foremost, set a quit date and quit completely on that day. Before your quit date, you may begin reducing your cigarette use. But remember, there is no safe level of cigarette smoking. ? List the reasons why you want to quit. Include both short- and long-term benefits. ? Identify the times you are most likely to smoke. For example, do you tend to smoke when feeling stressed or down? When out at night with friends? While drinking coffee or alcohol? When bored? While driving? Right after a meal or sex? During a work break? While watching TV or playing cards? When you are with other smokers? ? Let all of your friends, family, and co-workers know of your plan to stop smoking and your quit date. Just being aware that they know what you're going through can be helpful, especially when you are grumpy. ? Get rid of all your cigarettes just before the quit date, and clean out anything that smells like smoke, such as clothes and furniture. Make a plan about what you will do instead of smoking at those times when you are most likely to smoke. ? Be as specific as possible. For example, drink tea instead of coffee -- tea may not trigger the desire for a cigarette. Or, take a walk when you feel stressed. ? Remove ashtrays and cigarettes from the car. Place pretzels or hard candies there instead. Pretend-smoke with a straw. ? Find activities that focus your hands and mind but are not taxing or fattening. Computer games, solitaire, knitting, sewing, and crossword puzzles may help. ? If you normally smoke after eating, find other ways to end a meal. Play a tape or CD, eat a piece of fruit, get up and make a phone call, or take a walk (a good distraction that also moreno calories). Make other changes in your lifestyle. ? Change your daily schedule and habits. Eat at different times or eat several small meals instead of three large ones. Sit in a different chair or even a different room. ? Satisfy your oral habits by eating celery or other low-calorie snack, chewing sugarless gum, or sucking on a cinnamon stick. ? Go to public places and restaurants where smoking is prohibited or restricted. ? Eat regular meals and don't eat too much candy or sweet things. ? Get more exercise. Take walks or ride a bike. Exercise helps relieve the urge to smoke. Set short-term quitting goals and reward yourself when you meet them. ? Every day, put the money you normally spend on cigarettes in a jar. Then buy something pleasurable after a period of time. ? Try not to think about all the days ahead you will need to avoid smoking. Take it one day at a time. ? Even one puff or one cigarette will make your desire for more cigarettes even stronger. However, it is normal to make mistakes. So even if you have one cigarette, you don't need to take the next one. Other tips to help you quit smoking and stick to it: ? Enroll in a smoking cessation program (hospitals, health departments, community centers, and work sites often offer programs). Learn about self-hypnosis or other techniques. ? Ask your health care provider about prescription medications that are safe and appropriate for you. ? Find out about nicotine patches, gum, and sprays. The [place] [employer]'s web site -- www.cancer.org -- is an excellent resource for smokers who are trying to quit, and the [employer] [place] [employer] can help some smokers kick the habit. Above all, don't get discouraged if you aren't able to quit smoking the first time. Nicotine addiction is a hard habit to break. Try something different next time. Develop new strategies, and try again. Many people take several attempts to finally kick the habit. Code(s): F17.200 - Nicotine dependence, unspecified, uncomplicated Category: Medical (3) Lung cancer screening declined by patient: Onset Date: ~06/13/25 Code(s): Z53.20 - Procedure and treatment not carried out because of patient's decision for unspecified reasons Category: Medical (4) Cholesterol reduction program declined: Onset Date: ~06/13/25 Code(s): Z53.20 - Procedure and treatment not carried out because of patient's decision for unspecified reasons Category: Medical (5) Positive colorectal cancer screening using Cologuard test: Onset Date: 2023 Code(s): R19.5 - Other fecal abnormalities Category: Medical (6) Mammogram declined: Onset Date: ~06/13/25 Code(s): Z53.20 - Procedure and treatment not carried out because of patient's decision for unspecified reasons Category: Medical (7) Papanicolaou smear declined: Onset Date: ~06/13/25 Code(s): Z53.20 - Procedure and treatment not carried out because of patient's decision for unspecified reasons Category: Medical (8) Dual energy x-ray photon absorptiometry (DEXA) scan declined: Onset Date: ~06/13/25 Code(s): Z53.20 - Procedure and treatment not carried out because of patient's decision for unspecified reasons Category: Medical (9) Hypothyroid: Code(s): E03.9 - Hypothyroidism, unspecified Category: Medical Qualifiers: Hypothyroidism type: acquired Qualified Code(s): E03.9 - Hypothyroidism, unspecified (10) CKD (chronic kidney disease) stage 3, GFR 30-59 ml/min: Code(s): N18.30 - Chronic kidney disease, stage 3 unspecified Category: Medical Qualifiers: Chronic kidney disease stage 3 subtype: stage 3a (GFR 45-59) Qualified Code(s): N18.31 - Chronic kidney disease, stage 3a (11) Folate deficiency: Code(s): E53.8 - Deficiency of other specified B group vitamins Category: Medical (12) HTN (hypertension): Code(s): I10 - Essential (primary) hypertension Category: Medical Qualifiers: Hypertension type: primary hypertension Qualified Code(s): I10 - Essential (primary) hypertension Plan . Orders: Orders OBSX3 Today R19.5 - Other fecal abnormalities TSH reflex Free T4 4 Months E03.9 - Hypothyroidism, unspecified, E53.8 - Deficiency of other specified B group vitamins, N18.31 - Chronic kidney disease, stage 3a Vitamin B12 and Folate 4 Months E03.9 - Hypothyroidism, unspecified, E53.8 - Deficiency of other specified B group vitamins, N18.31 - Chronic kidney disease, stage 3a Comprehensive Met. Panel 4 Months E03.9 - Hypothyroidism, unspecified, E53.8 - Deficiency of other specified B group vitamins, N18.31 - Chronic kidney disease, stage 3a Medications: New trazodone 50 mg PO BEDTIME 90 tabs 2RF Refilled levothyroxine 150 mcg PO DAILY 90 tabs 2RF valsartan 80 mg PO DAILY 90 tabs 2RF folic acid 1 mg PO DAILY 90 tabs 2RF Patient Instructions: Health screenings for women You should visit your health care provider from time to time, even if you are healthy. The purpose of these visits is to: Screen for medical issues Assess your risk for future medical problems Encourage a healthy lifestyle Update vaccinations and other preventive care services Help you get to know your provider in case of an illness Information Even if you feel fine, you should still see your provider for regular checkups. These visits can help you avoid problems in the future. For example, the only way to find out if you have high blood pressure is to have it checked regularly. High blood sugar and high cholesterol levels also may not have any symptoms in the early stages. A simple blood test can check for these conditions. There are specific times when you should see your provider or receive specific health screenings. The [place] Preventive Services Task Force publishes a list of recommended screenings. Below are screening guidelines for women ages 18 to 39. BLOOD PRESSURE SCREENING Your blood pressure should be checked at least once every 3 to 5 years if: Your blood pressure is in the normal range (top number less than 120 mm Hg and bottom number less than 80 mm Hg) You don't have risk factors for high blood pressure Ask your provider if you need your blood pressure checked more often if: The top number is 120 to 129 mm Hg or the bottom number is 70 to 79 mm Hg You have diabetes, heart disease, kidney problems, are overweight, or have certain other health conditions You have a first-degree relative with high blood pressure You are Black You had high blood pressure during a If the top number is 130 mm Hg or greater or the bottom number is 80 mm Hg or greater, this is considered stage 1 hypertension. Schedule an appointment with your provider to learn how you can reduce your blood pressure. Watch for blood pressure screenings in your area. Ask your provider if you can stop in to have your blood pressure checked. BREAST CANCER SCREENING Experts do not agree about the benefits of breast self-exams in finding breast cancer or saving lives. Talk to your provider about what is best for you. A screening mammogram is not recommended for most women under age 40. Your provider may discuss and recommend mammograms, MRI scans, or ultrasounds if you have an increased risk for breast cancer, such as: A mother or sister who had breast cancer at a young age (most often starting screening earlier than the age the close relative was diagnosed) You carry a high-risk genetic marker CERVICAL CANCER SCREENING Cervical cancer screening should start at age 21 years unless your provider advises otherwise. After the first test: Women ages 21 through 29 should have a Pap test every 3 years. Exoprts do not agree on whether HPV testing is recommended for this age group. Women ages 30 through 65 should be screened with either a Pap test every 3 years or the HPV test every 5 years or both tests every 5 years (called cotesting ). Women who have been treated for precancer (cervical dysplasia) should continue to have Pap tests for 20 years after treatment or until age 65, whichever is longer. If you have had your uterus and cervix removed (total hysterectomy), and you have not been diagnosed with cervical cancer or precancer (high grade cervical neoplasia), you do not need cervical cancer screening. CHOLESTEROL SCREENING Cholesterol screening should begin at: Age 45 for women with no known risk factors for coronary heart disease Age 20 for women with known risk factors for coronary heart disease Repeat cholesterol screening should take place: Every 5 years for women with normal cholesterol levels More often if changes occur in lifestyle (including weight gain and diet) More often if you have diabetes, heart disease, kidney problems, or certain other conditions DIABETES SCREENING You should be screened for diabetes starting at age 35 and then repeated every 3 years if you have no risk factors for diabetes. Screening may need to start earlier and be repeated more often if you have other risk factors for diabetes, such as: You have a first degree relative with diabetes. You are overweight or have obesity. You have high blood pressure, prediabetes, or a history of heart disease. Screening for diabetes should be done if you are planning to become and you are overweight and have other risk factors such as high blood pressure. DENTAL EXAM Go to the dentist once or twice every year for an exam and cleaning. Your dentist will evaluate if you need more frequent visits. EYE EXAM Have an eye exam every 5 to 10 years before age 40. If you have vision problems, have an eye exam every 2 years or more often if recommended by your provider. You should have an eye exam that includes an examination of your retina (back of your eye) at least every year if you have diabetes. IMMUNIZATIONS Commonly needed vaccines include: Flu shot: get one every year. COVID-19 vaccine: ask your provider what is best for you. Tetanus-diphtheria and acellular pertussis (Tdap) vaccine: have one at or after age 19 as one of your tetanus-diphtheria vaccines if you did not receive it as an adolescent. Tetanus-diphtheria: have a booster (or Tdap) every 10 years. Varicella vaccine: receive 2 doses if you never had chickenpox or the varicella vaccine. Hepatitis B vaccine: receive 2, 3, or 4 doses, depending on your exact circumstances. Measles, mumps, and rubella (MMR) vaccine: receive 1 to 2 doses if you are not already immune to MMR. Your provider can tell you if you are immune. Ask your provider about the human papillomavirus (HPV) vaccine if: You have not received the HPV vaccine in the past You have not completed the full vaccine series (you should catch up on this shot) Ask your provider if you should receive other immunizations if you have certain health problems that increase your risk for some diseases such as pneumonia. INFECTIOUS DISEASE SCREENING Women who are sexually active should be screened for chlamydia and gonorrhea up until age 25. Women 25 years and older should be screened for chlamydia and gonorrhea if at high risk. Screening for hepatitis C: All adults ages 18 to 79 should get a one-time test for hepatitis C. people should be screened at every . Screening for human immunodeficiency virus (HIV): All people ages 15 to 65 should get a one-time test for HIV. Depending on your lifestyle and medical history, you may also need to be screened for infections such as syphilis and HIV, as well as other infections. PHYSICAL EXAM All adults should visit their provider from time to time, even if they are healthy. The purpose of these visits is to: Screen for disease Assess your risk of future medical problems Encourage a healthy lifestyle Update your vaccinations and other preventive care services Maintain a relationship with a provider in case of an illness Your height, weight, and BMI should be checked at every exam. During your exam, your provider may ask you about: Depression and anxiety Diet and exercise Alcohol and tobacco use Safety issues, such as using seat belts, smoke detectors, and intimate partner violence Your medicines and risk for interactions SKIN SELF-EXAM Your provider may check your skin for signs of skin cancer, especially if you're at high risk, such as if you: Have had skin cancer before Have close relatives with skin cancer Have a weakened immune system OTHER SCREENING Talk with your provider about colon cancer screening if you have a strong family history of colon cancer or polyps, or if you have had inflammatory bowel disease or polyps yourself. Routine bone density screening of women under 40 is not recommended.
--- OUTSIDE RECORDS SUMMARY | 2025-06-13 19:49 | XMS_ITS | Clinical Summary ---
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 Name Role Phone Jesus Cr MD Primary Care Provider [phone] Allergies Active Allergy Reactions Criticality Noted Date Comments Other 12/12/2018 Seasonal Allergies Rdjnxhg-Hfe-Ecx Reductase Inhibitors 03/14/2019 Hand cramping, serious Medications [...] on file Sexual Orientation Not on file Last Filed Vital Signs Vital Sign Reading [...] EST Primary hypertension LIPID PANEL Routine 11/20/2022 [facility] HEPATITIS C SCREENING Routine 09/03/2020 from Last 3 Months or Most Recently Relevant to Health Maintenance Results * (ABNORMAL) Basic metabolic panel (06/16/2024 12:04 PM EST) Sodium 138 133 - 145 mmol/L LAB CHEMISTRY METHOD 06/16/2024 3:34 PM [facility] Potassium 3.3(L) 3.5 - 5.5 mmol/L LAB CHEMISTRY METHOD 06/16/2024 3:34 PM [facility] Chloride 99 96 - 110 mmol/L LAB CHEMISTRY METHOD 06/16/2024 3:34 PM [facility] CO2 29 21 - 32 mmol/L LAB CHEMISTRY METHOD 06/16/2024 3:34 PM [facility] Anion Gap 10 3 - 11 LAB CHEMISTRY METHOD 06/16/2024 3:34 PM [facility] Glucose 108(H) 70 - 100 mg/dL LAB CHEMISTRY METHOD 06/16/2024 3:34 PM [facility] BUN 12 5 - 25 mg/dL LAB CHEMISTRY METHOD 06/16/2024 3:34 PM [facility] Creatinine 0.90 0.50 - 1.10 mg/dL LAB CHEMISTRY METHOD 06/16/2024 3:34 PM [facility] eGFR 73 >=60 mL/min/1. 73m2 LAB CHEMISTRY METHOD 06/16/2024 3:34 PM EST [facility] Comment:Calculation based on the Chronic Kidney Disease Epidemiology Collaboration (CKD-EPI) equation refit without adjustment for race. BUN/Creatinine Ratio 13.3 LAB CHEMISTRY METHOD 06/16/2024 3:34 PM EST [facility] Calcium 9.8 8.5 - 10.5 mg/dL LAB CHEMISTRY METHOD 06/16/2024 3:34 PM EST [facility] Blood Venous blood specimen / Unknown Venipuncture / Unknown 06/16/2024 12:04 PM EST 06/16/2024 12:04 PM EST [facility] BLOOD ORDERABLES Final Result [facility] [address] [place] [address], * (ABNORMAL) Lipid panel (11/20/2022) LDL/HDL Ratio 7(A) 0 - 4 Triglycerides 590(A) 0 - 150 mg/dL Cholesterol 369(A) 0 - 200 mg/dL HDL 51 >=40 mg/dL Blood Venous blood specimen / Unknown Historical Provider LAB BLOOD ORDERABLES Jocelyn l Result * Hepatitis C Screening (09/03/2020) Hepatitis C Screening Abstracted Historical Provider HEALTH MAINTENANCE Final Result from Last 3 Months or Most Recently Relevant to Health Maintenance Insurance [facility] Care Teams 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
== END 2025-06-13 14:34 | disposition home or self-care (01) ==
PROVIDERS: PCP Nurse Practitioner Family; Visit Provider Nurse Practitioner Family
DX: Z00.00 Encounter for general adult medical examination without abnormal findings (principal); N18.31 Chronic kidney disease, stage 3a; I10 Essential (primary) hypertension; R19.5 Other fecal abnormalities; E03.9 Hypothyroidism, unspecified; E53.8 Deficiency of other specified B group vitamins; F17.210 Nicotine dependence, cigarettes, uncomplicated; Z53.20 Procedure and treatment not carried out because of patient's decision for unspecified reasons